=== PATIENT | male | born 1980 | race Caucasian/White ===

== ENCOUNTER → 2017-04-25 | Outpatient (CLI) | payer OTHER | LOC: M.RAD 08:44 | DX: J45.909 Unspecified asthma, uncomplicated (principal) ==

== ENCOUNTER → 2018-05-22 | Outpatient (CLI) | payer OTHER | LOC: M.RAD 14:05 | DX: R06.09 Other forms of dyspnea (principal) ==

== ENCOUNTER → 2019-11-07 | Outpatient (CLI) | payer OTHER | LOC: M.RAD 15:15 | PROVIDERS: ATTEND Registered Nurse Diabetes Educator | DX: R91.8 Other nonspecific abnormal finding of lung field (principal); J98.01 Acute bronchospasm ==

== ENCOUNTER → 2019-11-22 | Outpatient (CLI) | payer OTHER | LOC: M.CT 14:38 | PROVIDERS: ATTEND Registered Nurse Diabetes Educator | DX: J84.10 Pulmonary fibrosis, unspecified (principal) ==